=== PATIENT | male | born 1945 | race Caucasian/White ===

== ENCOUNTER 2017-04-23 12:03 | Emergency (ER) | payer OTHER ==
[~2017-04-23] VITALS: Ht 165.1 cm; Wt 72.6 kg
[~2017-04-23 12:03] MED LIST: ALAVERT10 M1 PO; ALLOPURINOL100 MG PO; CELEBREX200 MG PO; CIPRO500 MG PO; CLORAZEPATE DI7.5 M1 PO; DOXAZOSIN2 MG PO; FIORICET 325 MG1 TAB PO; FLUTICASON0.05 MG/Ac NAS; LANSOPRAZOLE30 MG PO; LISINOPRIL5 MG PO; MOBIC7.5 MG PO; MORPHINE PUMP; MOTRIN800 MG PO; NEURONTIN600 MG PO; NYSTATIN OINTME30 GM T; OMEPRAZOLE40 MG PO; PRAVASTATIN SOD40 MG PO; PYRIDIUM200 MG PO; STOOL SOFTENER1 TAB PO; TAMSULOSIN HYD0.4 MG PO; TRIAMCINOLONE AC0.1% T; VESICARE10 MG PO; ZOFRAN4 MG PO; [UNRECOGNIZED DRUG - OTHER] PO
== END 2017-04-23 15:27 | disposition home or self-care (01) ==
LOC: ED 12:03
DX: S82.491A Other fracture of shaft of right fibula, initial encounter for closed fracture (principal); Z79.899 Other long term (current) drug therapy; X58.XXXA Exposure to other specified factors, initial encounter; Y93.89 Activity, other specified; Y92.413 State road as the place of occurrence of the external cause; Y99.9 Unspecified external cause status

== ENCOUNTER 2017-09-15 12:29 | Emergency (ER) | payer OTHER ==
[~2017-09-15] VITALS: Ht 165.1 cm; Wt 71.2 kg
== END 2017-09-15 14:57 | disposition home or self-care (01) ==
LOC: ED 12:29
DX: S01.01XA Laceration without foreign body of scalp, initial encounter (principal); S09.90XA Unspecified injury of head, initial encounter; F10.10 Alcohol abuse, uncomplicated; W01.0XXA Fall on same level from slipping, tripping and stumbling without subsequent striking against object, initial encounter; Y93.89 Activity, other specified; Y92.9 Unspecified place or not applicable; Y99.9 Unspecified external cause status

== ENCOUNTER 2018-04-05 10:00 | Emergency (ER) | payer OTHER ==
[~2018-04-05] VITALS: Wt 69.9 kg
[2018-04-05] MEDS ORDERED: CEPHALEXIN500 M1 PO (11:27)
== END 2018-04-05 11:31 | disposition home or self-care (01) ==
LOC: ED 10:00
DX: S81.811A Laceration without foreign body, right lower leg, initial encounter (principal); Z98.890 Other specified postprocedural states; Z79.899 Other long term (current) drug therapy; W29.8XXA Contact with other powered hand tools and household machinery, initial encounter; Y93.89 Activity, other specified; Y92.89 Other specified places as the place of occurrence of the external cause; Y99.9 Unspecified external cause status

== ENCOUNTER → 2019-12-25 | Outpatient (CLI) | payer OTHER ==
[~2019-12-25] MED LIST changes: +AUGMENTIN 875875 MG PO; +CEPHALEXIN500 M1 PO; +FLONASE ALLERG9.9 ML; +TESSALON PERLE100 M1 PO
== END | disposition home or self-care (01) ==
LOC: MRI 01:05
DX: M50.13 Cervical disc disorder with radiculopathy, cervicothoracic region (principal); M51.16 Intervertebral disc disorders with radiculopathy, lumbar region

== ENCOUNTER 2020-02-16 11:51 | Emergency (ER) | payer OTHER ==
[~2020-02-16] VITALS: Ht 165.1 cm; Wt 70.8 kg
[2020-02-16] MEDS ORDERED: AVPAK AZITHROM250 MG PO (13:35)
== END 2020-02-16 13:37 | disposition home or self-care (01) ==
LOC: ED 11:51
DX: J01.90 Acute sinusitis, unspecified (principal); I12.9 Hypertensive chronic kidney disease with stage 1 through stage 4 chronic kidney disease, or unspecified chronic kidney disease; N18.3 Chronic kidney disease, stage 3 (moderate); F41.9 Anxiety disorder, unspecified; K21.9 Gastro-esophageal reflux disease without esophagitis; J44.9 Chronic obstructive pulmonary disease, unspecified; Z79.899 Other long term (current) drug therapy

== ENCOUNTER 2020-03-07 09:33 | Emergency (ER) | payer OTHER ==
[~2020-03-07] VITALS: Ht 165.1 cm; Wt 70.3 kg
[~2020-03-07 09:33] MED LIST changes: +AVPAK AZITHROM250 MG PO
[2020-03-07] MEDS ORDERED: LEVOFLOXACIN500 MG PO (09:58)
== END 2020-03-07 10:02 | disposition home or self-care (01) ==
LOC: ED 09:33
DX: J32.9 Chronic sinusitis, unspecified (principal); J40 Bronchitis, not specified as acute or chronic; I10 Essential (primary) hypertension; K21.9 Gastro-esophageal reflux disease without esophagitis; G89.29 Other chronic pain; Z79.899 Other long term (current) drug therapy

== ENCOUNTER 2020-04-12 14:28 | Emergency (ER) | payer OTHER ==
[~2020-04-12] VITALS: Ht 165.1 cm; Wt 72.6 kg
[~2020-04-12 14:28] MED LIST changes: +LEVOFLOXACIN500 MG PO
[2020-04-12 15:34] LABS: BASO % 0.7 % (0.0-1.0); EOS # 0.3 10*3/uL (0.0-0.4); EOS % 5.2 % (1.0-4.0); HEMATOCRIT 40.3 % (42.0-52.0); LYMPH # 1.1 10*3/uL (1.3-4.4); LYMPH % 18.9 % (27.0-41.0); MEAN CELL VOLUME 96.9 fl (80.0-94.0); MEAN CORPUSCULAR HGB 31.5 pg (27.0-31.0); MEAN CORPUSCULAR HGB CONC 32.5 g/dl (33.0-37.0); MEAN PLATELET VOLUME 9.1 fl (9.6-12.3); MONO # 0.7 10*3/uL (0.1-1.0); MONO % 11.2 % (3.0-9.0); NEUT # 3.7 10*3/uL (2.3-7.9); NEUT % 63.8 % (47.0-73.0); PLATELET COUNT AUTOMATED 122 10*3/uL (130-400); RED BLOOD COUNT 4.16 10*6/uL (4.50-5.90); RED CELL DISTRI WIDTH 13.4 % (0-14.5); WHITE BLOOD COUNT 5.8 10*3/uL (4.8-10.8)
[2020-04-12 15:49] LABS: ALBUMIN 3.2 gm/dl (3.1-4.5); ALKALINE PHOSPHATASE 82 U/L (45-117); BUN 30 mg/dl (7-24); CHLORIDE 109 mmol/L (98-107); LIPASE 88 U/L (73-393); POTASSIUM 4.8 mmol/L (3.5-5.1); SGOT/AST 21 IU/L (3-35); SGPT/ALT 33 U/L (12-78); SODIUM 138 mmol/L (136-145); TOTAL PROTEIN 6.5 gm/dL (6.4-8.2)
[2020-04-12 15:50] LABS: TROPONIN I < 0.015 ng/ml (<0.045)
[2020-04-12] MEDS ORDERED: AUGMENTIN 500500 M1 PO (17:13)
[2020-04-12 19:35] LABS: BILIRUBIN 1+ (NEGATIVE); BLOOD NEGATIVE (NEGATIVE); CLARITY CLEAR (CLEAR); COLOR YELLOW (YELLOW); GLUCOSE NEGATIVE (NEGATIVE); KETONE NEGATIVE (NEGATIVE); LEUKO ESTERASE TRACE (NEGATIVE); NITRITE NEGATIVE (NEGATIVE); SPECIFIC GRAVITY 1.015 (1.005-1.030); UROBILINOGEN 0.2 E.U./dl (0.2-1.0)
[2020-04-12 19:36] LABS: BACTERIA TRACE
== END 2020-04-12 17:23 | disposition home or self-care (01) ==
LOC: ED 14:28
PROVIDERS: Family Medicine
DX: J01.90 Acute sinusitis, unspecified (principal); I10 Essential (primary) hypertension; K21.9 Gastro-esophageal reflux disease without esophagitis; F41.9 Anxiety disorder, unspecified; Z79.899 Other long term (current) drug therapy; Z79.2 Long term (current) use of antibiotics

== ENCOUNTER 2020-06-12 11:31 | Emergency (ER) | payer MEDICARE ==
[~2020-06-12] VITALS: Ht 165.1 cm; Wt 70.8 kg
[~2020-06-12 11:31] MED LIST changes: +AUGMENTIN 500500 M1 PO
[2020-06-12 12:13] LABS: BASO % 0.4 % (0.0-1.0); EOS # 0.1 10*3/uL (0.0-0.4); EOS % 0.5 % (1.0-4.0); HEMATOCRIT 41.4 % (42.0-52.0); LYMPH # 0.9 10*3/uL (1.3-4.4); LYMPH % 8.9 % (27.0-41.0); MEAN CELL VOLUME 96.1 fl (80.0-94.0); MEAN CORPUSCULAR HGB 30.9 pg (27.0-31.0); MEAN CORPUSCULAR HGB CONC 32.1 g/dl (33.0-37.0); MEAN PLATELET VOLUME 9.6 fl (9.6-12.3); MONO # 0.7 10*3/uL (0.1-1.0); MONO % 7.3 % (3.0-9.0); NEUT # 8.1 10*3/uL (2.3-7.9); NEUT % 82.5 % (47.0-73.0); PLATELET COUNT AUTOMATED 166 10*3/uL (130-400); RED BLOOD COUNT 4.31 10*6/uL (4.50-5.90); WHITE BLOOD COUNT 9.8 10*3/uL (4.8-10.8)
[2020-06-12 12:24] LABS: BACTERIA TRACE; BILIRUBIN NEGATIVE (NEGATIVE); BLOOD NEGATIVE (NEGATIVE); CLARITY SL CLOUDY (CLEAR); COLOR YELLOW (YELLOW); GLUCOSE NEGATIVE (NEGATIVE); KETONE NEGATIVE (NEGATIVE); LEUKO ESTERASE NEGATIVE (NEGATIVE); MUCOUS TRACE; NITRITE NEGATIVE (NEGATIVE); SPECIFIC GRAVITY 1.015 (1.005-1.030); UROBILINOGEN 0.2 E.U./dl (0.2-1.0)
[2020-06-12 12:29] LABS: ALBUMIN 3.7 gm/dl (3.1-4.5); CREATININE 1.8 mg/dL (0.70-1.30); POTASSIUM 4.3 mmol/L (3.5-5.1); TOTAL PROTEIN 7.5 gm/dL (6.4-8.2)
[2020-06-12] MEDS ORDERED: NORCO 5-325 TA1 EACH PO (15:58)
== END 2020-06-12 16:05 | disposition home or self-care (01) ==
LOC: ED 11:31
PROVIDERS: Physician Assistant
DX: S30.1XXA Contusion of abdominal wall, initial encounter (principal); I10 Essential (primary) hypertension; K21.9 Gastro-esophageal reflux disease without esophagitis; Z79.899 Other long term (current) drug therapy; Z79.2 Long term (current) use of antibiotics; W19.XXXA Unspecified fall, initial encounter; Y93.89 Activity, other specified; Y92.89 Other specified places as the place of occurrence of the external cause; Y99.8 Other external cause status

== ENCOUNTER 2020-06-18 10:25 | Inpatient (IN) | payer MEDICARE, OTHER ==
[~2020-06-18] VITALS: Ht 165.1 cm; Wt 70.3 kg
[~2020-06-18 10:25] MED LIST changes: -FLUTICASON0.05 MG/Ac NAS; +FLUTICASONE-SA1 EAC3 INH; +NORCO 5-325 TA1 EACH PO
[2020-06-18 10:31] VITALS: BP 126/72
[2020-06-18 11:33] LABS: BASO % 0.3 % (0.0-1.0); EOS # 0.1 10*3/uL (0.0-0.4); EOS % 0.7 % (1.0-4.0); HEMATOCRIT 42.6 % (42.0-52.0); LYMPH # 0.8 10*3/uL (1.3-4.4); LYMPH % 7.3 % (27.0-41.0); MEAN CELL VOLUME 90.3 fl (80.0-94.0); MEAN CORPUSCULAR HGB 30.3 pg (27.0-31.0); MEAN CORPUSCULAR HGB CONC 33.6 g/dl (33.0-37.0); MEAN PLATELET VOLUME 9.9 fl (9.6-12.3); MONO # 0.6 10*3/uL (0.1-1.0); NEUT # 9.1 10*3/uL (2.3-7.9); NEUT % 85.1 % (47.0-73.0); PLATELET COUNT AUTOMATED 207 10*3/uL (130-400); RED BLOOD COUNT 4.72 10*6/uL (4.50-5.90); RED CELL DISTRI WIDTH 13.9 % (0-14.5); WHITE BLOOD COUNT 10.7 10*3/uL (4.8-10.8)
[2020-06-18 11:51] LABS: ALBUMIN 4.1 gm/dl (3.1-4.5); CREATININE 2.98 mg/dL (0.70-1.30); POTASSIUM 2.9 mmol/L (3.5-5.1); TOTAL PROTEIN 8.2 gm/dL (6.4-8.2)
--- NOTE | 2020-06-18 12:22 | NUR ---
UNABLE TO VOID, NO BM OR VOMITING SINCE ARRIVAL.
[2020-06-18 12:26] VITALS: BP 120/70
[2020-06-18] MEDS ORDERED: LORAZEPAM2 MG PO (13:13)
[2020-06-18] MEDS ORDERED: DONNATAL TABL16.2 MG PO (13:16)
[2020-06-18] MEDS ORDERED: HYDROCODONE-AC1 EAC1 PO (13:16)
[2020-06-18] MEDS ORDERED: FISH OIL 1,0001 EAC5 PO (13:17)
[2020-06-18] MEDS ORDERED: VITAMIN E1000 UNI1 PO (13:18)
[2020-06-18] MEDS ORDERED: OXYBUTYNIN5 MG PO (13:18)
[2020-06-18] MEDS ORDERED: ZINC50 M4 PO (13:19)
[2020-06-18] MEDS ORDERED: VITAMIN B121000 MC1 PO (13:20)
[2020-06-18] MEDS ORDERED: VITAMIN C500 M4 PO (13:20)
[2020-06-18] MEDS ORDERED: SAW PALMETTO450 M1 PO (13:20)
--- NOTE | 2020-06-18 13:25 | NUR ---
Time: 1314 A 75 MALE year old MALE admitted to 4E under services of RANDA BEE DO. Pt. arrived via bed from ER. Chief complaint: N/V/D DEHYDRATION ACUTE KINDEY INJURY. AUBREY BRAVO
--- NOTE | 2020-06-18 15:14 | NUR ---
Nursing screen and occupational therapy orders received. Will follow up with patient. Thank you. Divine Logan OTR/L
[2020-06-18 16:00] VITALS: BP 127/67
[2020-06-18 16:23] LABS: BILIRUBIN NEGATIVE (NEGATIVE); BLOOD TRACE-INTACT (NEGATIVE); CLARITY CLEAR (CLEAR); COLOR YELLOW (YELLOW); GLUCOSE NEGATIVE (NEGATIVE); KETONE NEGATIVE (NEGATIVE); LEUKO ESTERASE TRACE (NEGATIVE); NITRITE POSITIVE (NEGATIVE); SPECIFIC GRAVITY 1.015 (1.005-1.030); UROBILINOGEN 0.2 E.U./dl (0.2-1.0)
[2020-06-18 16:24] LABS: BACTERIA TRACE; RBC 0-2 rbc/hpf (0-2); WBC 21-30 wbc/hpf (0-5)
--- NOTE | 2020-06-18 19:16 | NUR ---
ANSWERING SERVICE NOTIFIED OF CONSULT
[2020-06-18 20:00] VITALS: BP 164/66
--- NOTE | 2020-06-18 20:58 | NUR ---
PATIENT INQUIRING ABOUT NIGHT TIME MEDICATIONS. NOTIFIED DR. LEVY OF PATIENTS REQUEST FOR MEDICATIONS.
--- NOTE | 2020-06-18 22:25 | NUR ---
PRN ZOFRAN GIVEN FOR PT COMPLAINTS OF UPSET STOMACH. STATES HE TOOK A DISSOLVABLE TABLET EARLIER AND IT HELPED ALOT. ZOFRAN WAS GIVEN IN ER. CALL LIGHT WITHIN REACH, WILL MONITOR
--- NOTE | 2020-06-18 23:00 | NUR ---
PATIENT CONITNUES TO HAVE INDIGESTION AND AN UPSET STOMACH AFTER ZOFRAN, SPOKE WITH DR. LEVY AND ORDER RECIEVED FOR 1000MG OF TUMS TID PRN
--- NOTE | 2020-06-18 23:56 | NUR ---
PRN TUMS GIVEN FOR PT COMPLAINTS OF CONTINUED INDIGESTION. CALL LIGHT WITHIN REACH, WILL MONITOR
[2020-06-19] VITALS: BP 157/75
--- NOTE | 2020-06-19 00:30 | NUR ---
PRN TUMS APPEARS EFFECTIVE, PT SLEEPING. NO DISTRESS NOTED. CALL LIGHT WITHIN REACH, WILL MONITOR
--- NOTE | 2020-06-19 02:41 | NUR ---
24 HR chart check completed.
--- NOTE | 2020-06-19 05:22 | NUR ---
GABAPENTIN REMOVED FROM MED REC PATIENT STATES HE NO LONGER TAKES THIS MEDICATION. ALSO PATIENT STATES HE TAKES FLONASE TWICE A DAY
[2020-06-19 05:42] LABS: CREATININE 2.12 mg/dL (0.70-1.30)
[2020-06-19 05:52] LABS: BASO % 0.5 % (0.0-1.0); EOS # 0.1 10*3/uL (0.0-0.4); EOS % 1.8 % (1.0-4.0); FREE T4 1.03 ng/dl (0.76-1.46); HEMATOCRIT 36.5 % (42.0-52.0); LYMPH # 0.9 10*3/uL (1.3-4.4); LYMPH % 15.6 % (27.0-41.0); MEAN CELL VOLUME 91.7 fl (80.0-94.0); MEAN CORPUSCULAR HGB 30.9 pg (27.0-31.0); MEAN CORPUSCULAR HGB CONC 33.7 g/dl (33.0-37.0); MEAN PLATELET VOLUME 9.7 fl (9.6-12.3); MONO # 0.7 10*3/uL (0.1-1.0); MONO % 12.4 % (3.0-9.0); NEUT % 69.3 % (47.0-73.0); PLATELET COUNT AUTOMATED 170 10*3/uL (130-400); RED BLOOD COUNT 3.98 10*6/uL (4.50-5.90); RED CELL DISTRI WIDTH 14.2 % (0-14.5); THYROID STIM HORMONE (HS) 1.03 uIU/ml (0.358-4.75); WHITE BLOOD COUNT 5.7 10*3/uL (4.8-10.8)
--- NOTE | 2020-06-19 07:37 | NUR ---
PHYSICAL THERAPY Screen and Orders recieved for PT evaluation. Will follow. Karthik Hernandez SPT Karyna Sheehan PT
[2020-06-19 08:00] VITALS: BP 138/67
[2020-06-19 08:07] LABS: VITAMIN D, 25-HYDROXY 47.2 ng/mL (30-100)
--- NOTE | 2020-06-19 08:39 | NUR ---
24 HR CHART CHECK COMPLETE.
--- NOTE | 2020-06-19 09:00 | NUR ---
Computer Clerk in to talk to patient. Patient states lives at home alone with his family calling in to check on him. There are 13 steps in the home. Physician: Dr. Wilmer Cabrera [facility]acy: [facility] Home health services: none Patient's level of ADLs: INDEPENDENT Patient has working utilities: yes DME: none Follow-up physician's appointment after d/c: will be made by the hospitalist nurse director upon discharge Does patient want to access PORTAL?: no Discharge plan discussed with patient. He lives at home alone with his family checking in on him. He is independent in his ADLs and ambulation. Discussed home health care services and he declines. He drives. He has a morphine pump on his left side which he is to have refilled on Monday, 06/23. He states he was just at his physician's office and the pump is running low. He states the physician lowered his dose until he has it refilled. His normal refill days are the th of each month. The pump is for back pain. He normally goes to [facility] in [place] but his appt next Monday is in [place]. Notified hospitalist nurse director. When medically stable he will be discharged to home. He states his daughter will provide transportation on discharge. JOSÉ LUIS PATTEN
--- NOTE | 2020-06-19 10:15 | NUR ---
PHYSICAL THERAPY Physical Therapy evaluation completed on 4th floor with full evaluation to follow. Recommend physical therapy per plan of care and home with family support upon discharge. Thank you for this referral. Karthik Hernandez SPT Karyna Sheehan PT
--- NOTE | 2020-06-19 11:24 | NUR ---
Occupational Therapy evaluation completed on with full evaluation to follow. Recommend occupational therapy per plan of care and return home upon discharge. Thank you for this referral. Divine Logan OTR/L
[2020-06-19 12:00] VITALS: BP 140/68
--- NOTE | 2020-06-19 14:30 | NUR ---
IMMODIUM GIVEN PRESCRIBED.
[2020-06-19 16:00] VITALS: BP 130/68
[2020-06-19 20:00] VITALS: BP 163/69
[2020-06-20] VITALS: BP 133/69
--- NOTE | 2020-06-20 06:11 | NUR ---
PATIENT STATES THAT SHE FEELS BETTER THIS MORNING AND IS NOW CONVINCE THAT HER PROBLEM IS NOT HER HEART BUT HER THROAT
[2020-06-20 06:13] LABS: BASO % 0.7 % (0.0-1.0); EOS # 0.3 10*3/uL (0.0-0.4); EOS % 5.4 % (1.0-4.0); HEMATOCRIT 34.4 % (42.0-52.0); LYMPH % 19.3 % (27.0-41.0); MEAN CELL VOLUME 94.2 fl (80.0-94.0); MEAN CORPUSCULAR HGB 31.2 pg (27.0-31.0); MEAN CORPUSCULAR HGB CONC 33.1 g/dl (33.0-37.0); MEAN PLATELET VOLUME 9.9 fl (9.6-12.3); MONO # 0.6 10*3/uL (0.1-1.0); MONO % 10.8 % (3.0-9.0); NEUT # 3.4 10*3/uL (2.3-7.9); NEUT % 63.4 % (47.0-73.0); PLATELET COUNT AUTOMATED 162 10*3/uL (130-400); RED BLOOD COUNT 3.65 10*6/uL (4.50-5.90); RED CELL DISTRI WIDTH 14.6 % (0-14.5); WHITE BLOOD COUNT 5.4 10*3/uL (4.8-10.8)
[2020-06-20 06:29] LABS: CREATININE 1.42 mg/dL (0.70-1.30)
[2020-06-20 08:00] VITALS: BP 130/65
[2020-06-20 12:00] VITALS: BP 137/71
[2020-06-20] MEDS ORDERED: DICYCLOMIN10 MG/5 ML PO (15:43)
[2020-06-20] MEDS ORDERED: DICYCLOMINE HCL10 MG PO (15:47)
--- NOTE | 2020-06-20 16:57 | NUR ---
PT DISCHARGED AT THIS TIME. HEPLOCK REMOVED. FOLLOW UP CARE AND PRESCRIPTIONS DISCUSSED.
== END 2020-06-20 16:57 | disposition home or self-care (01) | DRG 391 ==
LOC: ED 10:25 → 4E 12:01 → EDHOLD 12:01 → 4E 12:46
PROVIDERS: Emergency Medicine; Internal Medicine; ADMIT Family Medicine
DX: K52.9 Noninfective gastroenteritis and colitis, unspecified (principal); N17.0 Acute kidney failure with tubular necrosis; E87.1 Hypo-osmolality and hyponatremia; E87.2 Acidosis; N18.3 Chronic kidney disease, stage 3 (moderate); E87.6 Hypokalemia; E86.0 Dehydration; R73.9 Hyperglycemia, unspecified; N40.0 Benign prostatic hyperplasia without lower urinary tract symptoms; I12.9 Hypertensive chronic kidney disease with stage 1 through stage 4 chronic kidney disease, or unspecified chronic kidney disease; K21.9 Gastro-esophageal reflux disease without esophagitis

== ENCOUNTER 2020-06-22 16:07 | Inpatient (IN) | payer MEDICARE, OTHER ==
[~2020-06-22] VITALS: Ht 165.1 cm; Wt 74.1 kg
[~2020-06-22 16:07] MED LIST changes: +DICYCLOMIN10 MG/5 ML PO; +DICYCLOMINE HCL10 MG PO; +DONNATAL TABL16.2 MG PO; +FISH OIL 1,0001 EAC5 PO; +HYDROCODONE-AC1 EAC1 PO; +LORAZEPAM2 MG PO; +OXYBUTYNIN5 MG PO; +SAW PALMETTO450 M1 PO; +VITAMIN B121000 MC1 PO; +VITAMIN C500 M4 PO; +VITAMIN E1000 UNI1 PO; +ZINC50 M4 PO
[2020-06-22 16:28] VITALS: BP 130/99
[2020-06-22 17:13] LABS: BASO % 0.2 % (0.0-1.0); EOS # 0.1 10*3/uL (0.0-0.4); EOS % 0.9 % (1.0-4.0); HEMATOCRIT 41.6 % (42.0-52.0); LYMPH # 0.6 10*3/uL (1.3-4.4); LYMPH % 6.2 % (27.0-41.0); MEAN CELL VOLUME 94.3 fl (80.0-94.0); MEAN CORPUSCULAR HGB 31.3 pg (27.0-31.0); MEAN CORPUSCULAR HGB CONC 33.2 g/dl (33.0-37.0); MEAN PLATELET VOLUME 9.4 fl (9.6-12.3); MONO # 0.7 10*3/uL (0.1-1.0); MONO % 6.4 % (3.0-9.0); NEUT # 8.8 10*3/uL (2.3-7.9); NEUT % 85.8 % (47.0-73.0); PLATELET COUNT AUTOMATED 208 10*3/uL (130-400); RED BLOOD COUNT 4.41 10*6/uL (4.50-5.90); RED CELL DISTRI WIDTH 14.3 % (0-14.5); WHITE BLOOD COUNT 10.3 10*3/uL (4.8-10.8)
[2020-06-22 17:24] LABS: ACT PARTIAL THROMBO TIME 25.1 SECONDS (20.0-32.1)
[2020-06-22 17:28] LABS: ALBUMIN 3.6 gm/dl (3.1-4.5); CREATININE 2.13 mg/dL (0.70-1.30); POTASSIUM 3.8 mmol/L (3.5-5.1)
[2020-06-22 18:28] VITALS: BP 132/88
--- NOTE | 2020-06-22 18:28 | NUR ---
PT REMAINS W/O ACUTE DISTRESS NOTED WITH SAFETY PRECAUTIONS INTACT AND CALL LIGHT WITHIN REACH.
[2020-06-22 19:37] LABS: BILIRUBIN NEGATIVE (NEGATIVE); BLOOD NEGATIVE (NEGATIVE); CLARITY CLEAR (CLEAR); COLOR YELLOW (YELLOW); GLUCOSE NEGATIVE (NEGATIVE); KETONE NEGATIVE (NEGATIVE); LEUKO ESTERASE TRACE (NEGATIVE); NITRITE NEGATIVE (NEGATIVE); SPECIFIC GRAVITY 1.015 (1.005-1.030); UROBILINOGEN 0.2 E.U./dl (0.2-1.0)
[2020-06-22 19:45] LABS: HYALINE CAST 16-20
[2020-06-22 19:46] LABS: BACTERIA TRACE
--- NOTE | 2020-06-22 20:09 | NUR ---
PT PROVIDED CRYSTAL CONTRERAS AND PT W/O N/V/D NOTED WHILE IN ED,NO COMPLAINTS VOICED.
[2020-06-22 20:49] VITALS: BP 124/72
[2020-06-22 23:12] VITALS: BP 131/68
--- NOTE | 2020-06-22 23:12 | NUR ---
In to see pt at this time.Pt has bowel sounds x4 and clear lungs.Pt has 20 gauge intact on left forearm at this time.
[2020-06-22 23:45] VITALS: BP 134/74
--- NOTE | 2020-06-22 23:45 | NUR ---
A 75, admitted to , under the services of LENY Leyva DO with a diagnosis of DEHYDRATION, NAUSEA AND VOMITING, UTI. Chief complaint is NAUSEA, VOMITING AND DIARRHEA. Patient arrived via ambulance from ER. Monitor applied. Initial assessment completed. Vital signs taken and recorded. LENY LEYVA DO notified of admission to the unit. Orders received. See assessment for past medical history, medications and allergies. Patient and/or family oriented to unit. visitation policy reviewed. Clothing/patient valuable form completed. RADHA DRAKE
--- NOTE | 2020-06-23 00:37 | NUR ---
DR. OSBORNE NOTIFIED THAT PATIENT'S HOME MED REQ IS UP TO DATE.
[2020-06-23 06:42] LABS: BASO % 0.4 % (0.0-1.0); EOS # 0.2 10*3/uL (0.0-0.4); EOS % 2.1 % (1.0-4.0); HEMATOCRIT 42.6 % (42.0-52.0); LYMPH # 1.6 10*3/uL (1.3-4.4); LYMPH % 14.5 % (27.0-41.0); MEAN CELL VOLUME 94.2 fl (80.0-94.0); MEAN CORPUSCULAR HGB 30.8 pg (27.0-31.0); MEAN CORPUSCULAR HGB CONC 32.6 g/dl (33.0-37.0); MEAN PLATELET VOLUME 9.4 fl (9.6-12.3); MONO % 9.3 % (3.0-9.0); NEUT # 7.9 10*3/uL (2.3-7.9); NEUT % 73.2 % (47.0-73.0); PLATELET COUNT AUTOMATED 215 10*3/uL (130-400); RED BLOOD COUNT 4.52 10*6/uL (4.50-5.90); RED CELL DISTRI WIDTH 14.3 % (0-14.5); WHITE BLOOD COUNT 10.8 10*3/uL (4.8-10.8)
--- NOTE | 2020-06-23 07:01 | NUR ---
Medicated for c/o nausea.
--- NOTE | 2020-06-23 07:16 | NUR ---
DR. ARCE NOTIFIED OF CONSULT FOR PERSISTENT NAUSEA AND VOMITING, PUD AND F/U ENDOSCOPY. SAID HE WILL BE IN TO SEE HIM.
[2020-06-23 07:19] LABS: ALBUMIN 3.5 gm/dl (3.1-4.5); CREATININE 2.14 mg/dL (0.70-1.30); POTASSIUM 3.9 mmol/L (3.5-5.1)
[2020-06-23 07:23] LABS: TOTAL PROTEIN 7.2 gm/dL (6.4-8.2)
[2020-06-23 08:00] VITALS: BP 125/58
--- NOTE | 2020-06-23 09:00 | NUR ---
Reversing Mill Roller in to talk to patient. Patient states lives at home with alone. There are 13 steps in the home. Physician: sanjay [facility]acy: [facility] Home health services: none at present Patient's level of ADLs: INDEPENDENT Patient has working utilities: all working DME: none Follow-up physician's appointment after d/c: will be made by hospitalist nurse director upon discharge Does patient want to access PORTAL?: no Discharge plan discussed with patient, patient was ambulating in room pushing iv pole, he states he lives at home alone, he is independent in adls and ambulation, drives, he states he will return home when discharged. discussed with him being readmitted within 30 days. discussed with him VNA and educated him on the services they provide, he declined, stated he didn't have any home health needs at this time, case management will follow. AHS HELLER
[2020-06-23 12:00] VITALS: BP 111/55
[2020-06-23 16:00] VITALS: BP 117/67
[2020-06-23 20:00] VITALS: BP 95/61
--- NOTE | 2020-06-23 22:04 | NUR ---
PATIENT MEDICATED WITH ZOFRAN FOR COMPLAINTS OF NAUSEA. WILL MONITOR FOR EFFECTIVENESS. CALL LIGHT IN REACH.
--- NOTE | 2020-06-23 23:16 | NUR ---
ZOFRAN EFFECTIVE AT THIS TIME. PATIENT IN BED WITH EYES CLOSED SLEEPING. WILL CONTINUE TO MONITOR.
[2020-06-24] VITALS: BP 101/61
--- NOTE | 2020-06-24 07:00 | NUR ---
ARRIVED ON SHIFT, REPORT RECEIVED FROM OFF GOING NURSE, ASSUMED CARE OF PATIENT.
--- NOTE | 2020-06-24 07:30 | NUR ---
INTRODUCED SELF TO PATIENT, BED IN LOW POSITION WITH WHEELLOCKS ENGAGED, SIDE RAILS UP X 2 FOR TURNING AND REPOSITIONING, CALL LIGHT WITHIN REACH, NO NEEDS VOICED AT THIS TIME. WHITE BOARD UPDATED.
[2020-06-24 08:00] VITALS: BP 115/66
[2020-06-24 08:05] LABS: CREATININE 3.5 mg/dL (0.70-1.30); POTASSIUM 3.1 mmol/L (3.5-5.1)
--- NOTE | 2020-06-24 09:00 | NUR ---
case management visits with patient, again discussed with him a discharge plan, he stated he would return home when discharged. he stated he doesn't know when discharge will be, he stated he may need surgery. discussed with him [facility] at home if he needed surgery, patient declined, stated he was independent in ambulation and his care and will be fine at home, he also stated his daughter will be with him frequently if he needed anything, case management will follow
[2020-06-24 12:00] VITALS: BP 126/66
[2020-06-24 16:00] VITALS: BP 148/80
--- NOTE | 2020-06-24 18:52 | NUR ---
Shift chart check completed.
[2020-06-24 20:00] VITALS: BP 103/60
--- NOTE | 2020-06-24 20:00 | NUR ---
Patient lying in bed, denies any nausea or vomiting at this time. Patient still having some diarrhea. Patient denies any needs at this time. Patient left with call light in reach.
[2020-06-24] MEDS ORDERED: FLONASE ALLERG9.9 ML NAS (21:08)
[2020-06-25] VITALS: BP 108/68
--- NOTE | 2020-06-25 00:38 | NUR ---
24 HR chart check completed.
[2020-06-25 06:08] LABS: BASO % 0.4 % (0.0-1.0); EOS # 0.6 10*3/uL (0.0-0.4); EOS % 7.6 % (1.0-4.0); HEMATOCRIT 37.3 % (42.0-52.0); LYMPH # 1.7 10*3/uL (1.3-4.4); LYMPH % 22.4 % (27.0-41.0); MEAN CELL VOLUME 95.9 fl (80.0-94.0); MEAN CORPUSCULAR HGB 31.1 pg (27.0-31.0); MEAN CORPUSCULAR HGB CONC 32.4 g/dl (33.0-37.0); MEAN PLATELET VOLUME 9.4 fl (9.6-12.3); MONO # 0.8 10*3/uL (0.1-1.0); MONO % 10.1 % (3.0-9.0); NEUT # 4.4 10*3/uL (2.3-7.9); NEUT % 59.2 % (47.0-73.0); PLATELET COUNT AUTOMATED 192 10*3/uL (130-400); RED BLOOD COUNT 3.89 10*6/uL (4.50-5.90); RED CELL DISTRI WIDTH 14.3 % (0-14.5); WHITE BLOOD COUNT 7.5 10*3/uL (4.8-10.8)
[2020-06-25 06:27] LABS: POTASSIUM 3.5 mmol/L (3.5-5.1)
[2020-06-25 06:31] LABS: CREATININE 3.45 mg/dL (0.70-1.30)
[2020-06-25 08:00] VITALS: BP 122/62
--- NOTE | 2020-06-25 08:00 | NUR ---
PATIENT IN ISOLATION FOR SUSPECTED COVID---RESULT IS NEGATIVE.
--- NOTE | 2020-06-25 09:00 | NUR ---
case management talks with patient he will return home when discharged, he denies any home needs at this time
--- NOTE | 2020-06-25 10:39 | NUR ---
DR. FERNÁNDEZ [facility]SWERING [facility]ICE [facility]
[2020-06-25 12:00] VITALS: BP 120/68
--- NOTE | 2020-06-25 12:33 | NUR ---
DR. FERNÁNDEZ HAS ROUNDED. NEW ORDERS RECEIVED. POST VOID RESIDUAL 192.
[2020-06-25 17:00] VITALS: BP 142/79
[2020-06-25 20:00] VITALS: BP 139/63
--- NOTE | 2020-06-25 20:13 | NUR ---
ASSUMED CARE OF PATIENT. PATIENT IS AAOX3 RESTING IN BED WITH EASY AND REGULAR RESPERS ON ROOM AIR. ASSESSMENT IS COMPLETE WITH NO C/O OR S/S OF DISTRESS NOTED AT THIS TIME. BED IS LOW, LOCKED, AND CALL LIGHT IS WITHIN REACH. WILL CONTINUE TO MONITOR. SEE INTERVENTIONS.
--- NOTE | 2020-06-25 20:35 | NUR ---
PRN ZOFRAN GIVEN WITH 2200 MEDICATIONS FOR C/O NAUSEA. CALL LIGHT IS WITHIN REACH, WILL MONITOR EFFECT.
--- NOTE | 2020-06-25 21:35 | NUR ---
PRN ZOFRAN EFFECTIVE PER PATIENT.
[2020-06-26] VITALS: BP 132/72
--- NOTE | 2020-06-26 03:18 | NUR ---
PATIENT APPEARS TO BE SLEEPING WITH EASY AND REGULAR RESPERS ON ROOM AIR. CALL LIGHT IS WITHIN REACH.
[2020-06-26 06:22] LABS: BASO % 0.4 % (0.0-1.0); EOS # 0.3 10*3/uL (0.0-0.4); EOS % 6.4 % (1.0-4.0); HEMATOCRIT 30.2 % (42.0-52.0); LYMPH # 0.9 10*3/uL (1.3-4.4); LYMPH % 18.6 % (27.0-41.0); MEAN CELL VOLUME 92.9 fl (80.0-94.0); MEAN CORPUSCULAR HGB 30.8 pg (27.0-31.0); MEAN CORPUSCULAR HGB CONC 33.1 g/dl (33.0-37.0); MEAN PLATELET VOLUME 9.4 fl (9.6-12.3); MONO # 0.4 10*3/uL (0.1-1.0); MONO % 9.4 % (3.0-9.0); NEUT # 3.1 10*3/uL (2.3-7.9); PLATELET COUNT AUTOMATED 144 10*3/uL (130-400); RED BLOOD COUNT 3.25 10*6/uL (4.50-5.90); WHITE BLOOD COUNT 4.7 10*3/uL (4.8-10.8)
[2020-06-26 06:47] LABS: ALBUMIN 2.4 gm/dl (3.1-4.5); CREATININE 2.42 mg/dL (0.70-1.30); POTASSIUM 3.5 mmol/L (3.5-5.1)
[2020-06-26 06:49] LABS: TOTAL PROTEIN 5.1 gm/dL (6.4-8.2)
[2020-06-26 08:11] VITALS: BP 145/67
--- NOTE | 2020-06-26 09:00 | NUR ---
case management talks with patient, he states he will return home when discharged, again discussed VNA and he declines any home needs, case management will follow
[2020-06-26 12:00] VITALS: BP 115/86
[2020-06-26 16:00] VITALS: BP 143/66
[2020-06-26 20:00] VITALS: BP 139/68
--- NOTE | 2020-06-26 22:35 | NUR ---
24 HR chart check completed.
[2020-06-27] VITALS: BP 159/72
--- NOTE | 2020-06-27 | NUR ---
RESTING IN BED WITH EYES CLOSED. CALL LIGHT WITHIN REACH.
--- NOTE | 2020-06-27 04:30 | NUR ---
RESTING IN BED WITH EYES CLOSED; IV FLUIDS CONTINUE TO INFUSE ORDERED. CALL LIGHT WITHIN REACH.
[2020-06-27 06:05] LABS: BASO % 0.5 % (0.0-1.0); EOS # 0.3 10*3/uL (0.0-0.4); EOS % 5.6 % (1.0-4.0); HEMATOCRIT 30.4 % (42.0-52.0); LYMPH # 0.8 10*3/uL (1.3-4.4); LYMPH % 17.6 % (27.0-41.0); MEAN CORPUSCULAR HGB 30.9 pg (27.0-31.0); MEAN CORPUSCULAR HGB CONC 33.2 g/dl (33.0-37.0); MONO # 0.5 10*3/uL (0.1-1.0); MONO % 10.6 % (3.0-9.0); NEUT # 2.9 10*3/uL (2.3-7.9); NEUT % 65.5 % (47.0-73.0); PLATELET COUNT AUTOMATED 146 10*3/uL (130-400); RED BLOOD COUNT 3.27 10*6/uL (4.50-5.90); WHITE BLOOD COUNT 4.4 10*3/uL (4.8-10.8)
[2020-06-27 06:23] LABS: CREATININE 1.93 mg/dL (0.70-1.30); POTASSIUM 3.5 mmol/L (3.5-5.1)
[2020-06-27 08:00] VITALS: BP 146/70
--- NOTE | 2020-06-27 08:57 | NUR ---
ZOFRAN GIVEN FOR C/O NUASEA. WILL MONITOR.
--- NOTE | 2020-06-27 10:00 | NUR ---
ZOFRAN EFFECTIVE PER PT.
[2020-06-27 12:00] VITALS: BP 136/80
--- NOTE | 2020-06-27 15:24 | NUR ---
ZOFRAN GIVEN FOR C/O NAUSEA. WILL MONITOR.
[2020-06-27 16:00] VITALS: BP 132/89
--- NOTE | 2020-06-27 16:30 | NUR ---
ZOFRAN EFFECTIVE PER PT.
[2020-06-27 20:00] VITALS: BP 157/67
--- NOTE | 2020-06-27 22:00 | NUR ---
TOOK MEDS WITHOUT DIFFICULTY; VOICES NO C/O AT THIS TIME. CALL LIGHT WITHIN REACH.
[2020-06-28] VITALS: BP 141/67
--- NOTE | 2020-06-28 02:00 | NUR ---
RESTING IN BED WITH EYES CLOSED. IV FLUIDS INFUSING ORDERED; CALL LIGHT WITHIN REACH.
[2020-06-28 05:56] LABS: BASO % 0.4 % (0.0-1.0); EOS # 0.3 10*3/uL (0.0-0.4); EOS % 5.7 % (1.0-4.0); HEMATOCRIT 31.1 % (42.0-52.0); LYMPH # 0.8 10*3/uL (1.3-4.4); LYMPH % 15.3 % (27.0-41.0); MEAN CELL VOLUME 94.2 fl (80.0-94.0); MEAN CORPUSCULAR HGB 30.9 pg (27.0-31.0); MEAN CORPUSCULAR HGB CONC 32.8 g/dl (33.0-37.0); MEAN PLATELET VOLUME 9.9 fl (9.6-12.3); MONO # 0.5 10*3/uL (0.1-1.0); MONO % 9.2 % (3.0-9.0); NEUT # 3.4 10*3/uL (2.3-7.9); NEUT % 69.2 % (47.0-73.0); PLATELET COUNT AUTOMATED 164 10*3/uL (130-400); RED CELL DISTRI WIDTH 14.3 % (0-14.5); WHITE BLOOD COUNT 4.9 10*3/uL (4.8-10.8)
[2020-06-28 05:57] LABS: CREATININE 1.93 mg/dL (0.70-1.30); POTASSIUM 3.5 mmol/L (3.5-5.1)
[2020-06-28 08:00] VITALS: BP 162/76
--- NOTE | 2020-06-28 08:00 | NUR ---
IN TO ROOM. PATIENT AWAKE, ALERT AND ORIENTED. NO STATED COMPLAINTS. NO S/S OF SOB OR DISTRESS NOTED. RESPIRATIONS ARE EASY AND REGULAR. ROOM AIR. BED IN LOWEST LOCKED POSITION AND CALL LIGHT WITHIN REACH. WILL CONTINUE TO MONITOR.
--- NOTE | 2020-06-28 08:00 | NUR ---
IN TO ROOM. PATIENT AWAKE, ALERT AND ORIENTED. NO STATED COMPLAINTS. NO S/S OF PAIN OR DISTRESS NOTED. RESPIRATIONS ARE EASY AND REGULAR ON ROOM AIR. PT REPOSITIONS SELF AND IS ENCOURAGED TO DO SO. BED IN LOWEST LOCKED POSITION AND CALL LIGHT WITHIN REACH. WILL CONTINUE TO MONITOR.
[2020-06-28 12:00] VITALS: BP 160/70
--- NOTE | 2020-06-28 12:30 | NUR ---
ANSWERED CALL LIGHT. PT STATES HIS IV HURTS. ATTEMPTED TO FLUSH IV, SITE IS LEAKING AND PT STATES IT IS PAINFUL. IN TO ROOM TO RESTART IV, PT IS EATING LUNCH. WILL GO BACK WHEN HE IS DONE EATING.
--- NOTE | 2020-06-28 14:51 | NUR ---
NEW IV START IN PATIENT'S RIGHT ARM BY JANINA CARMICHAEL RN. PT TOLERATED WELL.
[2020-06-28 16:00] VITALS: BP 146/75
--- NOTE | 2020-06-28 19:00 | NUR ---
REPORT RECEIVED. PT LYING IN BED AT THIS TIME. NO COMPLAINTS CALL LIGHT IN REACH
--- NOTE | 2020-06-28 19:30 | NUR ---
REPORT RECEIVED. PT WATCHING TV. NO COMPLAINTS. CALL LIGHT IN REACH
[2020-06-28 20:00] VITALS: BP 144/68
--- NOTE | 2020-06-28 22:00 | NUR ---
PT WASHING UP AT THIS TIME
[2020-06-29] VITALS (12 sets, daily range): BP systolic 143–175; BP diastolic 62–88
--- NOTE | 2020-06-29 03:00 | NUR ---
PT ASLEEP AT THIS TIME
--- NOTE | 2020-06-29 05:30 | NUR ---
IN TO SEE PT. PT RELAXING AT THIS TIME. VOICES NO COMPLAINTS, CALL LIGHT IN REACH
[2020-06-29 06:16] LABS: BASO % 0.3 % (0.0-1.0); EOS # 0.3 10*3/uL (0.0-0.4); EOS % 5.5 % (1.0-4.0); HEMATOCRIT 31.3 % (42.0-52.0); LYMPH % 17.1 % (27.0-41.0); MEAN CELL VOLUME 94.3 fl (80.0-94.0); MEAN CORPUSCULAR HGB CONC 32.9 g/dl (33.0-37.0); MEAN PLATELET VOLUME 9.6 fl (9.6-12.3); MONO # 0.6 10*3/uL (0.1-1.0); MONO % 9.4 % (3.0-9.0); NEUT % 67.4 % (47.0-73.0); PLATELET COUNT AUTOMATED 144 10*3/uL (130-400); RED BLOOD COUNT 3.32 10*6/uL (4.50-5.90); RED CELL DISTRI WIDTH 14.4 % (0-14.5)
[2020-06-29 06:34] LABS: ALBUMIN 2.6 gm/dl (3.1-4.5); CREATININE 1.68 mg/dL (0.70-1.30); POTASSIUM 3.7 mmol/L (3.5-5.1); TOTAL PROTEIN 5.9 gm/dL (6.4-8.2)
--- NOTE | 2020-06-29 09:00 | NUR ---
case management visits with patient, he states he is having his gallbladder out today, he states he will return home when discharged, discussed with him VNA and educated him on the services they provide, he declined any VNA at this time, case management will follow
--- NOTE | 2020-06-29 16:06 | NUR ---
NORCO 5/325 GIVEN FOR ABDOMINAL POST OP PAIN RATING A 10/10. BP IS 170/82 MANUAL. WILL CHECK AGAIN AFTER PAIN PILL HAS TIME TO START WORKING.
--- NOTE | 2020-06-29 17:00 | NUR ---
PATIENT RESTING IN BED WITH EYES CLOSED. NO SIGNS OF PAIN. NORCO EFFECTIVE.
--- NOTE | 2020-06-29 21:00 | NUR ---
PT WATCHING TV. PT TURNED OFF IV PUMP, STATES "I DONT NEED THESE ANYMORE" REFUSING NURSE TO TURN THEM BACK ON.
[2020-06-30] VITALS: BP 138/83
--- NOTE | 2020-06-30 | NUR ---
DR. LEVY NOTIFIED OF PT COMPLAINT HE CANT VOID. BLADDER SCANNED FOR >999. DR. LEVY GAVE ORDER FOR STRAIGHT CATH AT THIS TIME. NO OTHER ORDERS.
--- NOTE | 2020-06-30 04:00 | NUR ---
PT ASLEEP AT THIS TIME.
--- NOTE | 2020-06-30 05:00 | NUR ---
PER PADMINI JANSEN TO D/C LR AT THIS TIME.
--- NOTE | 2020-06-30 05:32 | NUR ---
PT VOIDING ON OWN.
[2020-06-30 06:45] LABS: BASO % 0.3 % (0.0-1.0); EOS # 0.1 10*3/uL (0.0-0.4); HEMATOCRIT 30.8 % (42.0-52.0); LYMPH # 0.9 10*3/uL (1.3-4.4); LYMPH % 12.3 % (27.0-41.0); MEAN CELL VOLUME 93.6 fl (80.0-94.0); MEAN CORPUSCULAR HGB 30.4 pg (27.0-31.0); MEAN CORPUSCULAR HGB CONC 32.5 g/dl (33.0-37.0); MEAN PLATELET VOLUME 9.8 fl (9.6-12.3); MONO # 0.6 10*3/uL (0.1-1.0); MONO % 9.2 % (3.0-9.0); NEUT # 5.4 10*3/uL (2.3-7.9); NEUT % 76.9 % (47.0-73.0); PLATELET COUNT AUTOMATED 128 10*3/uL (130-400); RED BLOOD COUNT 3.29 10*6/uL (4.50-5.90); RED CELL DISTRI WIDTH 14.3 % (0-14.5)
[2020-06-30 07:01] LABS: CREATININE 1.67 mg/dL (0.70-1.30); POTASSIUM 4.3 mmol/L (3.5-5.1)
[2020-06-30 08:00] VITALS: BP 163/82
--- NOTE | 2020-06-30 08:15 | NUR ---
VOIDING: PER PT, HE WAS STRAIGHT CATH'D LAST NIGHT BY NIGHT TURN RN. HE STATES THAT AROUND 0230 HE WOKE UP AND COULD NOT URINATE SO HE TOOK THE STRAIGHT CATH AND DID IT HIMSELF AGAIN WITHOUT NOTIFIYING RN. PT STATES THAT HE STILL CANNOT VOID ON HIS OWN AT THIS TIME. HE STATES THAT HE HAS A FEELING LIKE HE HAS TO URINATE. PT BLADDER SCANNED FOR >726. NOTIFIED DR FLORES. NO NEW ORDERS AT THIS TIME. CONTINUE TO MONITOR THE PT.
--- NOTE | 2020-06-30 09:00 | NUR ---
case management visits with patient, patient had a lap salas yesterday and began having urinary retention, patient currently has an indwelling santiago in place, discussed with patient having home health visit and educated him on their services and that they would help with santiago care, patient declined any home services, he stated he knew how to care for an indwelling santiago, case management will follow for any other needs
[2020-06-30] MEDS ORDERED: NORCO 5-325 TA1 EACH PO (11:20)
--- NOTE | 2020-06-30 12:07 | NUR ---
DISCHARGE: DISCHARGE INSTRUCTIONS GIVEN TO THE PT AND EXPLAINED IN DETAIL. ALL QUESTIONS ANSWERED. IV REMOVED INTACT WITHOUT COMPLICATIONS. ALL BELONGINGS GATHERED FOR PT. MEDICATIONS RETRIEVED FROM PHARMACY AND GIVEN TO THE PT. PT TO BE TAKEN DOWNSTAIRS TO LOBBY IN WHEELCHAIR. PA INFORMED THAT THE PT NEEDS HELP GETTING READY FOR DISCHARGE. LEON TO REMAIN IN PLACE. EXPLAINED THIS TO THE PT. PT VERBALIZED UNDERSTANDING. EDUCATED ON HOW TO EMPTY LEON BAG. PT DISCHARGED.
== END 2020-06-30 12:33 | disposition home or self-care (01) | DRG 417 ==
LOC: ED 16:07 → 4E 22:43 → EDHOLD 22:43 → 4E 23:04
PROVIDERS: Family Medicine; Internal Medicine; Nurse Practitioner Family; Student in an Organized Health Care Education/Training Program; Surgery; ADMIT Internal Medicine
PROC: 0FT44ZZ Resection of Gallbladder, Percutaneous Endoscopic Approach (ICD-10-PCS; principal; 2020-06-29)
DX: K80.10 Calculus of gallbladder with chronic cholecystitis without obstruction (principal); N17.0 Acute kidney failure with tubular necrosis; N39.0 Urinary tract infection, site not specified; E87.2 Acidosis; K52.9 Noninfective gastroenteritis and colitis, unspecified; E86.0 Dehydration; I12.9 Hypertensive chronic kidney disease with stage 1 through stage 4 chronic kidney disease, or unspecified chronic kidney disease; K21.9 Gastro-esophageal reflux disease without esophagitis; E87.6 Hypokalemia; R73.9 Hyperglycemia, unspecified; E87.8 Other disorders of electrolyte and fluid balance, not elsewhere classified; D53.9 Nutritional anemia, unspecified; J32.9 Chronic sinusitis, unspecified; N40.1 Benign prostatic hyperplasia with lower urinary tract symptoms; R39.14 Feeling of incomplete bladder emptying; N18.3 Chronic kidney disease, stage 3 (moderate); M54.5 Low back pain; G89.29 Other chronic pain; K27.9 Peptic ulcer, site unspecified, unspecified as acute or chronic, without hemorrhage or perforation; Z20.828 Contact with and (suspected) exposure to other viral communicable diseases; Z98.49 Cataract extraction status, unspecified eye; Z80.1 Family history of malignant neoplasm of trachea, bronchus and lung; Z82.49 Family history of ischemic heart disease and other diseases of the circulatory system; Z79.899 Other long term (current) drug therapy

== ENCOUNTER 2020-07-08 12:11 | Emergency (ER) | payer MEDICARE, OTHER ==
[~2020-07-08] VITALS: Ht 165.1 cm; Wt 72.6 kg
[~2020-07-08 12:11] MED LIST changes: +FLONASE ALLERG9.9 ML NAS
[2020-07-08 14:13] LABS: BASO % 0.5 % (0.0-1.0); EOS # 0.1 10*3/uL (0.0-0.4); EOS % 2.2 % (1.0-4.0); HEMATOCRIT 38.8 % (42.0-52.0); LYMPH # 0.8 10*3/uL (1.3-4.4); LYMPH % 13.5 % (27.0-41.0); MEAN CORPUSCULAR HGB 30.7 pg (27.0-31.0); MEAN PLATELET VOLUME 9.8 fl (9.6-12.3); MONO # 0.6 10*3/uL (0.1-1.0); MONO % 9.5 % (3.0-9.0); NEUT # 4.2 10*3/uL (2.3-7.9); NEUT % 73.3 % (47.0-73.0); PLATELET COUNT AUTOMATED 348 10*3/uL (130-400); RED BLOOD COUNT 4.04 10*6/uL (4.50-5.90); RED CELL DISTRI WIDTH 13.9 % (0-14.5); WHITE BLOOD COUNT 5.8 10*3/uL (4.8-10.8)
[2020-07-08 14:29] LABS: ALBUMIN 3.1 gm/dl (3.1-4.5); CREATININE 2.44 mg/dL (0.70-1.30); POTASSIUM 3.4 mmol/L (3.5-5.1); TOTAL PROTEIN 7.3 gm/dL (6.4-8.2)
[2020-07-08 17:47] LABS: BILIRUBIN NEGATIVE (NEGATIVE); BLOOD 3+ (NEGATIVE); CLARITY CLOUDY (CLEAR); COLOR YELLOW (YELLOW); GLUCOSE NEGATIVE (NEGATIVE); KETONE NEGATIVE (NEGATIVE); LEUKO ESTERASE 2+ (NEGATIVE); NITRITE NEGATIVE (NEGATIVE); SPECIFIC GRAVITY 1.005 (1.005-1.030); UROBILINOGEN 0.2 E.U./dl (0.2-1.0)
[2020-07-08 18:07] LABS: BACTERIA 2+; RBC TNTC rbc/hpf (0-2); WBC 41-50 wbc/hpf (0-5)
[2020-07-08] MEDS ORDERED: SEPTDS PO (18:35)
== END 2020-07-08 19:15 | disposition home or self-care (01) ==
LOC: ED 12:11
PROVIDERS: Physician Assistant; Podiatrist Foot & Ankle Surgery
DX: N39.0 Urinary tract infection, site not specified (principal); R19.7 Diarrhea, unspecified; I12.9 Hypertensive chronic kidney disease with stage 1 through stage 4 chronic kidney disease, or unspecified chronic kidney disease; N18.3 Chronic kidney disease, stage 3 (moderate); K21.9 Gastro-esophageal reflux disease without esophagitis; F41.9 Anxiety disorder, unspecified; Z79.899 Other long term (current) drug therapy

== ENCOUNTER → 2020-07-21 | Outpatient (CLI) | payer MEDICARE, OTHER ==
[~2020-07-21] MED LIST changes: +SEPTDS PO
== END | disposition home or self-care (01) ==
LOC: RAD 11:24
DX: M47.26 Other spondylosis with radiculopathy, lumbar region (principal); M48.061 Spinal stenosis, lumbar region without neurogenic claudication; Z95.828 Presence of other vascular implants and grafts; Z90.49 Acquired absence of other specified parts of digestive tract

== ENCOUNTER 2020-10-19 22:44 | Inpatient (IN) | payer MEDICARE, OTHER ==
[~2020-10-19] VITALS: Ht 165.1 cm; Wt 67.6 kg
[2020-10-19 22:55] VITALS: BP 152/70
--- NOTE | 2020-10-19 23:25 | NUR ---
BP 148/81,PULSE 95%, O2 SAT 96%, RESP.20
--- NOTE | 2020-10-19 23:30 | NUR ---
PT PRESENTS TO ER WITH SON WHO STATES HIS FATHER WOULDNT ANSWER HIS PHONE TONIGHT WHEN HE AND HIS SIS IN LAW CALLED PT SO HE WENT TO CHECK ON FATHER AND HE WAS SLOW TO GET UP AND WOBBLY TO THE DOOR. NAD. PT STATES HE HAS A SMALL STOMACH ACHE AND HAS HAD N/V/D FOR TWO DAYS AND WAS EXPOSED TO COVID YESTERDAY. VSS. DR LOGAN AT BEDSIDE. POC EXPLAINED. SL IV 20G PLACED IN LEFT FOREARM X1 ATTEMPT AND LABS COLLECTED FROM SITE. VETERINARY TOXICOLOGIST AT BEDSIDE AND CARRIED LAB. EKG BEING PERFORMED AT THIS TIME BY Power GENAO RN. WILL CONTINUE TO MONITOR.
[2020-10-19 23:40] LABS: HEMATOCRIT 41.4 % (42.0-52.0); MEAN CORPUSCULAR HGB 30.1 pg (27.0-31.0); MEAN CORPUSCULAR HGB CONC 32.4 g/dl (33.0-37.0); MEAN PLATELET VOLUME 9.8 fl (9.6-12.3); PLATELET COUNT AUTOMATED 215 10*3/uL (130-400); RED BLOOD COUNT 4.45 10*6/uL (4.50-5.90); RED CELL DISTRI WIDTH 14.6 % (0-14.5); WHITE BLOOD COUNT 10.1 10*3/uL (4.8-10.8)
--- NOTE | 2020-10-19 23:56 | NUR ---
XRAY AT BEDSIDE. PT GIVEN URINAL TO COLLECT URINE FOR UA
[2020-10-19 23:58] LABS: ALBUMIN 3.1 gm/dl (3.1-4.5); ALKALINE PHOSPHATASE 82 U/L (45-117); BUN 45 mg/dl (7-24); CHLORIDE 107 mmol/L (98-107); CREATININE 2.49 mg/dL (0.70-1.30); POTASSIUM 4.1 mmol/L (3.5-5.1); SGOT/AST 34 IU/L (3-35); SGPT/ALT 29 U/L (12-78); SODIUM 136 mmol/L (136-145); TOTAL PROTEIN 7.5 gm/dL (6.4-8.2)
[2020-10-20] LABS: PLATELET SUFFICIENCY NORMAL (NORMAL); TOTAL CELLS COUNTED 100 #CELLS
[2020-10-20 00:01] LABS: TROPONIN I < 0.015 ng/ml (<0.045)
--- NOTE | 2020-10-20 00:40 | NUR ---
PT URINATED IN URINAL AND COLLECTED BY NURSE AND SENT TO TO LAB.
[2020-10-20 01:31] LABS: BILIRUBIN Negative (Negative); BLOOD Negative (Negative); CLARITY Clear (Clear); COLOR Yellow (Yellow); GLUCOSE Negative (Negative); KETONE Trace (Negative); LEUKO ESTERASE Negative (Negative); NITRITE Negative (Negative); PH 5.5 (4.5-8.0); SPECIFIC GRAVITY 1.015 (1.001-1.030); UROBILINOGEN 0.2 E.U./dl (0.0-1.0)
--- NOTE | 2020-10-20 01:31 | NUR ---
PT SLEEPING. UPDATE GIVEN TO SON IN WAITING AREA. NAD, NO NEED OR FONFERNS. WILL CONTINUE TO MONITOR
--- NOTE | 2020-10-20 02:19 | NUR ---
PT AWAKENS TO NURSE AND SON AT BEDSIDE. PT DENIES ANY PAIN OR COMPLAINTS JUST STATES HE IS TIRED. NAD. SL IV FLUSHES EASILY. NS 1000ML STARTED AT THIS TIME. WILL CONTINUE TO MONITOR. PLEASE CALL LUCY, PTS SON IF ANY CHANGES OR HAVE ANY QUESTIONS [phone]
--- NOTE | 2020-10-20 02:49 | NUR ---
PT SLEEPING. NAD. EASY AND UNLABORED RESP OBSERVED. WILL CONTINUE TO MONITOR.
--- NOTE | 2020-10-20 03:17 | NUR ---
REPORT CALLED TO NICOLE. BENITO
--- NOTE | 2020-10-20 03:25 | NUR ---
PT TRANSFERRED TO ROOM 505 VIA STRETCHER AND CARE PASSED OFF TO JIGNA SPANGLER.
[2020-10-20] MEDS ORDERED: VITAMIN C1000 M5 PO (03:54)
[2020-10-20 04:00] VITALS: BP 127/65
--- NOTE | 2020-10-20 04:08 | NUR ---
A 75, admitted to , under the services of HEIDI Medellin DO with a diagnosis of DEHYDRATION NAUSEA VOMITING. Chief complaint is DEHYRATION . Patient arrived via stretcher from ER. Monitor applied. Initial assessment completed. Vital signs taken and recorded. HEIDI MEDELLIN DO notified of admission to the unit. Orders received. See assessment for past medical history, medications and allergies. Patient and/or family oriented to unit. [facility] visitation policy reviewed. Clothing/patient valuable form completed. GERALD SUNSHINE
[2020-10-20 06:37] LABS: BASO % 0.1 % (0.0-1.0); HEMATOCRIT 35.5 % (42.0-52.0); LYMPH # 0.7 10*3/uL (1.3-4.4); LYMPH % 9.6 % (27.0-41.0); MEAN CELL VOLUME 95.4 fl (80.0-94.0); MEAN CORPUSCULAR HGB 30.9 pg (27.0-31.0); MEAN CORPUSCULAR HGB CONC 32.4 g/dl (33.0-37.0); MEAN PLATELET VOLUME 9.8 fl (9.6-12.3); MONO # 0.5 10*3/uL (0.1-1.0); NEUT # 5.9 10*3/uL (2.3-7.9); NEUT % 82.9 % (47.0-73.0); PLATELET COUNT AUTOMATED 180 10*3/uL (130-400); RED BLOOD COUNT 3.72 10*6/uL (4.50-5.90); RED CELL DISTRI WIDTH 14.8 % (0-14.5); WHITE BLOOD COUNT 7.1 10*3/uL (4.8-10.8)
--- NOTE | 2020-10-20 06:42 | NUR ---
Spoke with Maribell regarding new consult for Dr. De Anda she states she will pass the information along to the doctor.
[2020-10-20 06:52] LABS: CREATININE 2.28 mg/dL (0.70-1.30); POTASSIUM 4.1 mmol/L (3.5-5.1)
[2020-10-20 08:00] VITALS: BP 125/61
--- NOTE | 2020-10-20 09:00 | NUR ---
Assembly Manager in to talk to patient. Patient states lives at HOME with ALONE. There are 13 steps in the home. Physician: MELANIE [facility]acy: [facility] Home health services: NONE Patient's level of ADLs: INDEPENDENT Patient has working utilities: ALL WORKING DME: NONE Follow-up physician's appointment after d/c: WILL BE MADE BY HOSPITALIST NURSE DIRECTOR UPON DISCHARGE Does patient want to access PORTAL?: NO Discharge plan DISCUSSED WITH PATIENT, HE STATES HE LIVES AT HOME ALONE, IS INDEPENDENT IN ADLS AND AMBULATION, HE STATES HE WILL RETURN HOME WHEN DISCHARGED AND AT THIS TIME DENIES ANY HOME NEEDS, CASE MANAGEMENT WILL FOLLOW. ASH HELLER
[2020-10-20 10:42] LABS: ACT PARTIAL THROMBO TIME 33.9 SECONDS (20.0-32.1)
--- NOTE | 2020-10-20 11:13 | NUR ---
PATIENT TRANSFERRED TO NEGATIVE AIRFLOW ISOLATION ROOM ON 4EAST, REPORT GIVEN TO RECEIVING RN.
--- NOTE | 2020-10-20 11:57 | NUR ---
PT INSTRUCTED ON USE OF THE INCENTIVE SPIROMETER. PT ENCOURAGED TO USE Q1. PT REACHED [id number]
[2020-10-20 12:00] VITALS: BP 121/61
--- NOTE | 2020-10-20 12:30 | NUR ---
INTIIAL ASSESSMENT COMPLETE. RESPS EASY ON RA. DENIES SOB. DENIES CP/PRESSURE. NO EDEMA. PT ONLY C/O IS DIARRHEA X1 WEEK.ORIENTED TO ROOM. PT VOICES NO OTHER NEEDS AT THIS TIME. CALL LIGHT IN REACH.
--- NOTE | 2020-10-20 13:30 | NUR ---
DR FERNÁNDEZ ROUNDED AND SEEN PT. ORDER RECIEVED.
[2020-10-20 15:16] LABS: VITAMIN D, 25-HYDROXY 43.8 ng/mL (30-100)
[2020-10-20 16:00] VITALS: BP 120/69
[2020-10-20 20:00] VITALS: BP 128/63
[2020-10-20 20:01] VITALS: BP 93/42
[2020-10-21] VITALS: BP 114/71
[2020-10-21 06:57] LABS: BASO % 0.2 % (0.0-1.0); EOS % 0.2 % (1.0-4.0); HEMATOCRIT 31.8 % (42.0-52.0); LYMPH # 0.7 10*3/uL (1.3-4.4); LYMPH % 12.9 % (27.0-41.0); MEAN CELL VOLUME 92.4 fl (80.0-94.0); MEAN CORPUSCULAR HGB 30.5 pg (27.0-31.0); MEAN PLATELET VOLUME 9.6 fl (9.6-12.3); MONO # 0.4 10*3/uL (0.1-1.0); MONO % 6.8 % (3.0-9.0); NEUT # 4.4 10*3/uL (2.3-7.9); NEUT % 79.2 % (47.0-73.0); PLATELET COUNT AUTOMATED 162 10*3/uL (130-400); RED BLOOD COUNT 3.44 10*6/uL (4.50-5.90); RED CELL DISTRI WIDTH 14.7 % (0-14.5); WHITE BLOOD COUNT 5.6 10*3/uL (4.8-10.8)
--- NOTE | 2020-10-21 07:30 | NUR ---
PT RESTING IN BED. RESPS EASY AND NON LABORED. NO S/S OF DISTRESS NOTED. VSS. WHITE BOARD UPDATED. POC DISCUSSED W PT. A/O X3. NO N/V/C. C/O CHRONIC DIARRHEA. PT STATES HE WAS IN CLOSE CONTACT W A FRIEND WHO IS +COVID. WILL CONTINUE TO MONITOR. CALL LIGHT WITHIN REACH. ENCOURAGED TO PRONE/DEEP BREATHE.
[2020-10-21 07:35] LABS: ALBUMIN 2.3 gm/dl (3.1-4.5); CREATININE 1.67 mg/dL (0.70-1.30); TOTAL PROTEIN 5.6 gm/dL (6.4-8.2)
[2020-10-21 07:48] LABS: POTASSIUM 3.1 mmol/L (3.5-5.1)
--- NOTE | 2020-10-21 09:00 | NUR ---
case management talks with patient, he states he will return home when discharged and denies any home needs, case management will follow
[2020-10-21 12:00] VITALS: BP 111/63
--- NOTE | 2020-10-21 12:00 | NUR ---
PT RESTING IN CHAIR. VOICES NO CONCERNS. RESPS EASY AND NON LABORED. WILL CONTINUE TO MONITOR. CALL LIGHT WITHIN REACH.
--- NOTE | 2020-10-21 15:25 | NUR ---
EXPLAINED TO PT WE NEED STOOL TO CHECK FOR CDIFF. VERBALIZED UNDERSTANDING.
[2020-10-21 16:00] VITALS: BP 146/71
--- NOTE | 2020-10-21 18:34 | NUR ---
Patient resting quietly with no c/o discomfort. Respirations easy and regular. Vital signs stable. No overt distress. HISSOM,MECHELLE
[2020-10-21 20:00] VITALS: BP 131/78
[2020-10-22] VITALS: BP 116/62
[2020-10-22 07:37] LABS: CREATININE 1.58 mg/dL (0.70-1.30); POTASSIUM 2.8 mmol/L (3.5-5.1)
[2020-10-22 08:00] VITALS: BP 163/58
[2020-10-22 16:00] VITALS: BP 175/72
[2020-10-22 20:00] VITALS: BP 158/65
--- NOTE | 2020-10-22 20:44 | NUR ---
NORCO GIVEN FOR C/O HEADACHE. WILL MONITOR.
--- NOTE | 2020-10-22 21:45 | NUR ---
PABLO EFFECTIVE PER PT.
[2020-10-23 07:10] LABS: BASO % 0.2 % (0.0-1.0); EOS # 0.1 10*3/uL (0.0-0.4); EOS % 1.2 % (1.0-4.0); HEMATOCRIT 30.6 % (42.0-52.0); LYMPH # 0.6 10*3/uL (1.3-4.4); LYMPH % 14.3 % (27.0-41.0); MEAN CELL VOLUME 93.3 fl (80.0-94.0); MEAN CORPUSCULAR HGB 30.8 pg (27.0-31.0); MEAN PLATELET VOLUME 10.1 fl (9.6-12.3); MONO # 0.4 10*3/uL (0.1-1.0); MONO % 9.6 % (3.0-9.0); NEUT % 74.2 % (47.0-73.0); PLATELET COUNT AUTOMATED 168 10*3/uL (130-400); RED BLOOD COUNT 3.28 10*6/uL (4.50-5.90); RED CELL DISTRI WIDTH 14.3 % (0-14.5); WHITE BLOOD COUNT 4.1 10*3/uL (4.8-10.8)
[2020-10-23 07:34] LABS: ALBUMIN 2.3 gm/dl (3.1-4.5); ALKALINE PHOSPHATASE 63 U/L (45-117); CHLORIDE 106 mmol/L (98-107); CPK 173 U/L (39-308); CREATININE 1.33 mg/dL (0.70-1.30); LDH 238 U/L (87-241); POTASSIUM 2.8 mmol/L (3.5-5.1); SGOT/AST 38 IU/L (3-35); SGPT/ALT 30 U/L (12-78); SODIUM 140 mmol/L (136-145); TOTAL PROTEIN 5.7 gm/dL (6.4-8.2)
[2020-10-23 07:37] LABS: BUN 13 mg/dl (7-24)
[2020-10-23 08:00] VITALS: BP 150/71
[2020-10-23 12:00] VITALS: BP 142/63
[2020-10-23 16:00] VITALS: BP 148/67
--- NOTE | 2020-10-23 18:05 | NUR ---
NOTIFIED PATIENT REQUESTING SOMETHING FOR SORE THROAT AND A HEADACHE. NEW ORDERS RECEIVED. NOTIFIED PATIENT STATES THE TYLENOL AND NORCO NEITHER ONE WORKED FOR HIS HEADACHE. STATES SHE WILL TAKE A LOOK AND PUT SOMETHING ON.
--- NOTE | 2020-10-23 19:35 | NUR ---
NOTIFIED PATIENT WANTING SOMETHING FOR HEADACHE AND THAT TYLENOL AND NORCO WERE UNEFFECTIVE FOR HIM YESTERDAY.
--- NOTE | 2020-10-23 19:50 | NUR ---
MEDICATED WITH ONE TIME TORADOL AND REGLAN FOR A HEADACHE. WILL ASSESS EFFECTIVENESS. CALL LIGHT IN REACH.
[2020-10-23 20:00] VITALS: BP 132/73
--- NOTE | 2020-10-23 20:50 | NUR ---
REGLAN AND TORADOL EFFECTIVE FOR HEADACHE PER PATIENT.
[2020-10-24] VITALS: BP 142/72
[2020-10-24 07:15] LABS: BASO % 0.2 % (0.0-1.0); EOS # 0.1 10*3/uL (0.0-0.4); EOS % 2.1 % (1.0-4.0); HEMATOCRIT 30.1 % (42.0-52.0); LYMPH # 0.9 10*3/uL (1.3-4.4); LYMPH % 20.2 % (27.0-41.0); MEAN CELL VOLUME 92.3 fl (80.0-94.0); MEAN CORPUSCULAR HGB 30.7 pg (27.0-31.0); MEAN CORPUSCULAR HGB CONC 33.2 g/dl (33.0-37.0); MEAN PLATELET VOLUME 9.8 fl (9.6-12.3); MONO # 0.4 10*3/uL (0.1-1.0); MONO % 10.2 % (3.0-9.0); NEUT # 2.8 10*3/uL (2.3-7.9); NEUT % 66.8 % (47.0-73.0); PLATELET COUNT AUTOMATED 166 10*3/uL (130-400); RED BLOOD COUNT 3.26 10*6/uL (4.50-5.90); RED CELL DISTRI WIDTH 14.4 % (0-14.5); WHITE BLOOD COUNT 4.2 10*3/uL (4.8-10.8)
[2020-10-24 07:32] LABS: ALBUMIN 2.3 gm/dl (3.1-4.5); ALKALINE PHOSPHATASE 64 U/L (45-117); BUN 9 mg/dl (7-24); CHLORIDE 108 mmol/L (98-107); CPK 155 U/L (39-308); LDH 227 U/L (87-241); SGOT/AST 37 IU/L (3-35); SGPT/ALT 33 U/L (12-78); SODIUM 142 mmol/L (136-145); TOTAL PROTEIN 5.5 gm/dL (6.4-8.2)
[2020-10-24 08:00] VITALS: BP 148/84
[2020-10-24] MEDS ORDERED: IMODIUM A-D2 M2 PO (10:53)
[2020-10-24] MEDS ORDERED: ELIQUIS5 M1 PO (10:53)
[2020-10-24 12:00] VITALS: BP 134/72
--- NOTE | 2020-10-24 14:15 | NUR ---
Discharge instructions reviewed with patient/family. Patient receptive and verbalizes understanding. Follow-up care arranged. Written instructions given to patient/family. IV REMOVED. BIRDIE GORMAN
== END 2020-10-24 14:15 | disposition home or self-care (01) | DRG 177 ==
LOC: ED 22:44 → 4E 10-20 02:00 → EDHOLD 10-20 02:00 → 5E 10-20 02:43 → 4E 10-20 11:20
PROVIDERS: Family Medicine; Internal Medicine; ADMIT Internal Medicine; ATTEND Internal Medicine
DX: U07.1 COVID-19 (principal); N17.0 Acute kidney failure with tubular necrosis; J18.9 Pneumonia, unspecified organism; K52.9 Noninfective gastroenteritis and colitis, unspecified; E86.0 Dehydration; K21.9 Gastro-esophageal reflux disease without esophagitis; K27.9 Peptic ulcer, site unspecified, unspecified as acute or chronic, without hemorrhage or perforation; D53.9 Nutritional anemia, unspecified; I12.9 Hypertensive chronic kidney disease with stage 1 through stage 4 chronic kidney disease, or unspecified chronic kidney disease; N18.30 Chronic kidney disease, stage 3 unspecified; N40.0 Benign prostatic hyperplasia without lower urinary tract symptoms; M54.9 Dorsalgia, unspecified; G89.29 Other chronic pain; R73.9 Hyperglycemia, unspecified; E87.6 Hypokalemia; E83.39 Other disorders of phosphorus metabolism; Z87.81 Personal history of (healed) traumatic fracture; Z90.49 Acquired absence of other specified parts of digestive tract; Z98.49 Cataract extraction status, unspecified eye; Z80.1 Family history of malignant neoplasm of trachea, bronchus and lung; Z82.49 Family history of ischemic heart disease and other diseases of the circulatory system; Z79.899 Other long term (current) drug therapy

== ENCOUNTER 2021-04-12 17:54 | Emergency (ER) | payer MEDICARE, OTHER ==
[~2021-04-12] VITALS: Wt 71.7 kg
[~2021-04-12 17:54] MED LIST changes: +ELIQUIS5 M1 PO; +IMODIUM A-D2 M2 PO; +VITAMIN C1000 M5 PO
[2021-04-12 18:29] LABS: BASO % 0.1 % (0.0-1.0); EOS # 0.1 10*3/uL (0.0-0.4); EOS % 1.6 % (1.0-4.0); HEMATOCRIT 41.7 % (42.0-52.0); LYMPH % 14.9 % (27.0-41.0); MEAN CELL VOLUME 92.1 fl (80.0-94.0); MEAN CORPUSCULAR HGB 30.5 pg (27.0-31.0); MEAN CORPUSCULAR HGB CONC 33.1 g/dl (33.0-37.0); MEAN PLATELET VOLUME 9.2 fl (9.6-12.3); MONO # 0.7 10*3/uL (0.1-1.0); MONO % 9.8 % (3.0-9.0); NEUT # 5.1 10*3/uL (2.3-7.9); NEUT % 73.3 % (47.0-73.0); PLATELET COUNT AUTOMATED 181 10*3/uL (130-400); RED BLOOD COUNT 4.53 10*6/uL (4.50-5.90); RED CELL DISTRI WIDTH 13.7 % (0-14.5); WHITE BLOOD COUNT 6.9 10*3/uL (4.8-10.8)
[2021-04-12 18:40] LABS: ACT PARTIAL THROMBO TIME 28.7 SECONDS (20.0-32.1)
[2021-04-12 18:57] LABS: ALBUMIN 3.3 gm/dl (3.1-4.5); POTASSIUM 3.5 mmol/L (3.5-5.1)
[2021-04-12 19:00] LABS: CREATININE 2.12 mg/dL (0.70-1.30); TOTAL PROTEIN 7.3 gm/dL (6.4-8.2)
[2021-04-12 20:46] LABS: BILIRUBIN Negative (Negative); BLOOD Negative (Negative); CLARITY Clear (Clear); COLOR Yellow (Yellow); GLUCOSE Negative (Negative); KETONE Negative (Negative); LEUKO ESTERASE Trace (Negative); NITRITE Negative (Negative); SPECIFIC GRAVITY <= 1.005 (1.001-1.030); UROBILINOGEN 0.2 E.U./dl (0.0-1.0)
[2021-04-12 21:00] LABS: BACTERIA TRACE; EPITHELIAL CELLS 0-2; RBC 0-2 rbc/hpf (0-2); YEAST TRACE
[2021-04-12] MEDS ORDERED: ZOFRAN4 MG PO (22:21)
== END 2021-04-12 22:32 | disposition home or self-care (01) ==
LOC: ED 17:54
PROVIDERS: Emergency Medicine
DX: K52.9 Noninfective gastroenteritis and colitis, unspecified (principal); E86.9 Volume depletion, unspecified; Z79.899 Other long term (current) drug therapy; Z79.2 Long term (current) use of antibiotics; Z90.49 Acquired absence of other specified parts of digestive tract; Z98.890 Other specified postprocedural states

== ENCOUNTER 2021-05-15 13:13 | Emergency (ER) | payer MEDICARE, OTHER ==
[~2021-05-15] VITALS: Ht 165.1 cm; Wt 69.9 kg
[~2021-05-15 13:13] MED LIST changes: +ADULTS 50+ MUL1 EACH PO; +ATIVAN1 MG PO; +ATIVAN2 M1 PO; +CLARITIN10 MG PO; +FINASTERIDE5 M1 PO; +FISH OIL CONC1000 M1 PO; +METAMUCIL PACK3.4 GM PO; +MYCOLOG CREAM 115 GM T; +PREDNISONE10 MG PO; +SODIUM BICARBO650 MG PO; +VITAMIN B-121000 MC2 PO; +VITAMIN D325 MCG PO; +ZINC50 M3 PO
[2021-05-15 14:34] LABS: BASO % 0.2 % (0.0-1.0); EOS % 0.2 % (1.0-4.0); HEMATOCRIT 40.7 % (42.0-52.0); LYMPH # 0.6 10*3/uL (1.3-4.4); LYMPH % 10.4 % (27.0-41.0); MEAN CORPUSCULAR HGB 30.7 pg (27.0-31.0); MEAN CORPUSCULAR HGB CONC 32.7 g/dl (33.0-37.0); MEAN PLATELET VOLUME 9.3 fl (9.6-12.3); MONO # 0.2 10*3/uL (0.1-1.0); MONO % 3.7 % (3.0-9.0); NEUT # 4.6 10*3/uL (2.3-7.9); PLATELET COUNT AUTOMATED 163 10*3/uL (130-400); RED BLOOD COUNT 4.33 10*6/uL (4.50-5.90); RED CELL DISTRI WIDTH 14.1 % (0-14.5); WHITE BLOOD COUNT 5.5 10*3/uL (4.8-10.8)
[2021-05-15 14:49] LABS: ALBUMIN 3.2 gm/dl (3.1-4.5); CREATININE 1.61 mg/dL (0.70-1.30); POTASSIUM 4.1 mmol/L (3.5-5.1)
[2021-05-15] MEDS ORDERED: AMOXICILLIN500 M2 PO (17:48)
== END 2021-05-15 17:58 | disposition home or self-care (01) ==
LOC: ED 13:13
PROVIDERS: Physician Assistant
DX: K52.1 Toxic gastroenteritis and colitis (principal); T36.0X5A Adverse effect of penicillins, initial encounter; T36.1X5A Adverse effect of cephalosporins and other beta-lactam antibiotics, initial encounter; Z79.899 Other long term (current) drug therapy; Z79.2 Long term (current) use of antibiotics; Z90.49 Acquired absence of other specified parts of digestive tract; Y92.098 Other place in other non-institutional residence as the place of occurrence of the external cause

== ENCOUNTER → 2022-05-18 | Outpatient (CLI) | payer MEDICARE, OTHER ==
[~2022-05-18] MED LIST changes: +AMOXICILLIN500 M2 PO
== END | disposition home or self-care (01) ==
LOC: RAD 15:53
PROVIDERS: ATTEND Internal Medicine
DX: J44.9 Chronic obstructive pulmonary disease, unspecified (principal)

== ENCOUNTER 2025-08-07 19:58 | Emergency (ER) | payer MEDICARE, OTHER ==
[2025-08-07] MEDS ORDERED: Lidocaine Hydrochloride 2% 10 ML AMP SC ONE (20:45)
== END 2025-08-07 22:23 | disposition home or self-care (01) ==
LOC: ED 19:58
DX: S61.212A Laceration without foreign body of right middle finger without damage to nail, initial encounter (principal); S61.411A Laceration without foreign body of right hand, initial encounter; Z79.899 Other long term (current) drug therapy; Z98.890 Other specified postprocedural states; I10 Essential (primary) hypertension; K21.9 Gastro-esophageal reflux disease without esophagitis; F41.9 Anxiety disorder, unspecified; X58.XXXA Exposure to other specified factors, initial encounter; Y93.89 Activity, other specified; Y92.89 Other specified places as the place of occurrence of the external cause; Y99.8 Other external cause status

== ENCOUNTER → 2025-08-15 | Outpatient (CLI) | payer MEDICARE, OTHER | END | disposition home or self-care (01) | LOC: WOUNDCARE 01:18 | PROVIDERS: ATTEND Nurse Practitioner Family | DX: S61.411A Laceration without foreign body of right hand, initial encounter (principal); S61.202A Unspecified open wound of right middle finger without damage to nail, initial encounter; E78.5 Hyperlipidemia, unspecified; M10.9 Gout, unspecified; K21.9 Gastro-esophageal reflux disease without esophagitis; N40.0 Benign prostatic hyperplasia without lower urinary tract symptoms; F41.9 Anxiety disorder, unspecified; Z48.02 Encounter for removal of sutures; Z87.891 Personal history of nicotine dependence; Z90.49 Acquired absence of other specified parts of digestive tract; Z98.49 Cataract extraction status, unspecified eye; X58.XXXA Exposure to other specified factors, initial encounter; Y93.89 Activity, other specified; Y92.89 Other specified places as the place of occurrence of the external cause; Y99.8 Other external cause status ==

== ENCOUNTER → 2025-08-21 | Outpatient (CLI) | payer MEDICARE, OTHER | END | disposition home or self-care (01) | LOC: WOUNDCARE 01:32 | PROVIDERS: ATTEND Nurse Practitioner Family | DX: S61.411D Laceration without foreign body of right hand, subsequent encounter (principal); E78.5 Hyperlipidemia, unspecified; M10.9 Gout, unspecified; K21.9 Gastro-esophageal reflux disease without esophagitis; N40.0 Benign prostatic hyperplasia without lower urinary tract symptoms; F41.9 Anxiety disorder, unspecified; Z87.891 Personal history of nicotine dependence; Z98.49 Cataract extraction status, unspecified eye; Z96.653 Presence of artificial knee joint, bilateral; Z98.890 Other specified postprocedural states; Z79.899 Other long term (current) drug therapy; Z48.02 Encounter for removal of sutures; X58.XXXD Exposure to other specified factors, subsequent encounter ==